=== PATIENT | female | born 2000 | race Hispanic/Latino ===

== ENCOUNTER → 2018-03-02 | Outpatient (CLI) | payer OTHER | END | disposition home or self-care (01) | LOC: RAH 13:49 | PROVIDERS: ATTEND Physician Assistant Medical | DX: N63.20 Unspecified lump in the left breast, unspecified quadrant (principal) | CPT/HCPCS: 76641 ==

== ENCOUNTER → 2018-07-02 | Outpatient (CLI) | payer BC, OTHER | END | disposition home or self-care (01) | LOC: RAH 08:43 | PROVIDERS: ATTEND Family Medicine | DX: R16.0 Hepatomegaly, not elsewhere classified (principal); R74.0 Nonspecific elevation of levels of transaminase and lactic acid dehydrogenase [LDH]; R79.89 Other specified abnormal findings of blood chemistry | CPT/HCPCS: 76705 ==

== ENCOUNTER → 2018-07-15 | Outpatient (CLI) | payer BC, OTHER ==
[~2018-07-15] MED LIST: IOHEXOL 350 MG/ML 100ML INFUS..BTL IV ONE
== END | disposition home or self-care (01) ==
LOC: OIH 10:21
PROVIDERS: ATTEND Family Medicine
DX: K76.89 Other specified diseases of liver (principal); N32.89 Other specified disorders of bladder
CPT/HCPCS: 74177; Q9967

== ENCOUNTER → 2019-02-24 | Outpatient (CLI) | payer OTHER | END | disposition home or self-care (01) | LOC: RAH 10:33 | PROVIDERS: ATTEND Family Medicine | DX: R76.11 Nonspecific reaction to tuberculin skin test without active tuberculosis (principal) | CPT/HCPCS: 71046 ==

== ENCOUNTER 2021-05-28 13:26 | Inpatient (IN) | payer OTHER ==
[~2021-05-28] VITALS: Ht 160 cm; Wt 92.1 kg
[2021-05-28] MEDS ORDERED: OXYTOCIN-LR 20 UNITS/1000 ML 1,000 ML IV SCH (13:30)
[2021-05-28 14:01] LABS: HEMATOCRIT 35.4 % (36-48); MEAN CORPUSCULAR HEMOGLOBIN 30.6 pg (27.0-33.0); MEAN CORPUSCULAR HGB CONC 34.5 g/dL (32.0-36.0); MEAN CORPUSCULAR VOLUME 88.7 fL (79-99); RED BLOOD CELL COUNT(AUTO) 3.99 MIL/uL (4.00-5.50); RED CELL DISTRIBUTION WIDTH 13.2 % (11.0-15.5); WHITE BLOOD COUNT (AUTO) 10.2 K/uL (4.8-10.8)
[2021-05-28 14:31] VITALS: BP 112/68
[2021-05-28] MEDS: LACTATED RINGERS 1000ML 1,000 ML IV PRN (14:31)
[2021-05-28 14:49] LABS: APPEARANCE,URINE Clear (CLEAR); BILIRUBIN,URINE Negative (NEGATIVE); COLOR,URINE Yellow (YELLOW); GLUCOSE, URINE (UA) Negative (NEGATIVE); KETONES,URINE Negative (NEGATIVE); LEUKOCYTE ESTERASE ,URINE Negative (NEGATIVE); NITRATE,URINE Negative (NEGATIVE); OCCULT BLOOD,URINE Negative (NEGATIVE); PH,URINE 5.5 (5.0-8.0); PROTEIN,URINE Negative (NEGATIVE)
[2021-05-28] MEDS ORDERED: DINOPROSTONE 10 MG VAGINAL SUPP VG SCH (15:00)
[2021-05-29 03:09] LABS: HEPATITIS Bs ANTIGEN SCREEN P Negative (Negative)
[2021-05-29] MEDS ORDERED: OXYTOCIN-LR 20 UNITS/1000 ML 1,000 ML IV SCH (04:00)
[2021-05-29] MEDS: LACTATED RINGERS 1000ML 1,000 ML IV PRN (08:14)
[2021-05-29] MEDS ORDERED: BUTORPHANOL TARTRATE 2 MG/ML ONE (13:04)
[2021-05-29] MEDS ORDERED: BUTORPHANOL TARTRATE 2 MG/ML IVP ONE (14:45)
[2021-05-29] MEDS ORDERED: NALOXONE HCL 0.4 MG/1 ML ML IV PRN (15:00)
[2021-05-29] MEDS ORDERED: EPHEDRINE SULFATE 50 MG/ML AMPULE IVP PRN ×2 (15:00→20:30)
[2021-05-29] MEDS ORDERED: ROPIVACAINE 0.2% 100ML VIAL 100 ML EP SCH (15:00)
[2021-05-29] MEDS ORDERED: LACTATED RINGERS 500 ML 500 ML IV PRN (15:00)
[2021-05-29] MEDS ORDERED: CEFAZOLIN SODIUM 1 GM VIAL IVP PRN (17:30)
[2021-05-29] MEDS ORDERED: METOCLOPRAMIDE 10 MG/2 ML VIAL IVP PRN (17:30)
[2021-05-29] MEDS ORDERED: CITRIC ACID/SODIUM CITRATE 30 ML UDCUP PO PRN (17:30)
[2021-05-29] MEDS ORDERED: LACTATED RINGERS 1000ML 1,000 ML IV SCH (17:30)
[2021-05-29] MEDS ORDERED: FENTANYL CITRATE PF 50 MCG/1 ML 2ML VIAL ONE ×2 (18:03→18:27)
[2021-05-29] MEDS ORDERED: CEFAZOLIN SODIUM 1 GM VIAL IVP ONE (18:11)
[2021-05-29] MEDS ORDERED: OXYTOCIN 10 UNIT/1ML 10ML VIAL ONE (18:14)
[2021-05-29] MEDS ORDERED: ONDANSETRON 4MG INJ ONE (18:15)
[2021-05-29] MEDS ORDERED: KETAMINE HCL 100 MG/ML 5ML VIAL IJ ONE (18:18)
[2021-05-29] MEDS ORDERED: MORPHINE PF 100MG/10ML AMP IV ONE (18:23)
[2021-05-29] MEDS ORDERED: DEXAMETHASONE SOD PHOSPHATE 10MG/ML 1ML VIAL ONE (18:45)
[2021-05-29] MEDS ORDERED: MEPERIDINE-PF 75 MG/ML SYG IM PRN (19:00)
[2021-05-29] MEDS ORDERED: OXYTOCIN-LR 20 UNITS/1000 ML 1,000 ML IV PRN (19:00)
[2021-05-29] MEDS ORDERED: 0.9%NACL 10ML VIAL IVP PRN (19:00)
[2021-05-29] MEDS ORDERED: PROMETHAZINE HCL 25 MG/ML 1ML AMPULE IM PRN (19:00)
[2021-05-29] MEDS ORDERED: DEXTROSE 5 %-0.45 % NACL 1,000 ML IV PRN (19:00)
[2021-05-29] MEDS ORDERED: PHENYLEPHRINE HCL 10 MG/ML 1ML VIAL IV ONE (19:36)
[2021-05-29] MEDS ORDERED: LORATADINE 10 MG TABLET PO PRN (20:30)
[2021-05-29] MEDS ORDERED: NALOXONE HCL 0.4 MG/1 ML ML IVP PRN ×2 (20:30)
[2021-05-29] MEDS ORDERED: DiphenhydrAMINE HCL 50 MG/ML VIAL IVP PRN (20:30)
[2021-05-29] MEDS ORDERED: RACEPINEPHRINE HCL 2.25% 0.5 ML NEB SOLN NEB PRN (20:30)
[2021-05-29] MEDS ORDERED: ONDANSETRON 4MG INJ IVP PRN (20:30)
[2021-05-29] MEDS ORDERED: FENTANYL CITRATE PF 50 MCG/1 ML 2ML VIAL IVP PRN (20:30)
[2021-05-29] MEDS ORDERED: MEPERIDINE-PF 25 MG/ML SYG IVP PRN (20:30)
[2021-05-29] MEDS ORDERED: IPRATROPIUM/ALBUTEROL SULFATE 3 ML SOLUTION IH PRN (20:30)
[2021-05-29 23:00] VITALS: BP 139/82
[2021-05-30] MEDS ORDERED: ACETAMINOPHEN WITH CODEINE 1 TAB TAB PO PRN ×2 (01:30→08:30)
[2021-05-30] MEDS ORDERED: DIPH,PERTUSS(ACELL),TET VAC/PF 0.5 ML VIAL IM PRN (03:00)
[2021-05-30 03:56] VITALS: BP 118/55
[2021-05-30 06:29] LABS: HEMATOCRIT 29.2 % (36-48); MEAN CORPUSCULAR HEMOGLOBIN 29.6 pg (27.0-33.0); MEAN CORPUSCULAR HGB CONC 32.9 g/dL (32.0-36.0); MEAN CORPUSCULAR VOLUME 90.1 fL (79-99); RED BLOOD CELL COUNT(AUTO) 3.24 MIL/uL (4.00-5.50); RED CELL DISTRIBUTION WIDTH 13.4 % (11.0-15.5); WHITE BLOOD COUNT (AUTO) 19.5 K/uL (4.8-10.8)
[2021-05-30 07:13] VITALS: BP 115/67
[2021-05-30] MEDS ORDERED: LANOLIN 30GM OINTMENT TP PRN (08:30)
[2021-05-30] MEDS ORDERED: HYDROCODONE/ACETAMINOPHEN 5/325 MG TAB PO PRN (08:30)
[2021-05-30] MEDS ORDERED: ACETAMINOPHEN 500 MG TABLET PO PRN (08:30)
[2021-05-30] MEDS ORDERED: BISACODYL 10 MG SUPP.RECT RC PRN (08:30)
[2021-05-30] MEDS: DOCUSATE SODIUM 100 MG CAP PO SCH ×2 (08:55→20:32)
[2021-05-30] MEDS: SIMETHICONE 80 MG TAB.CHEW PO PRN ×2 (08:55→20:32)
[2021-05-30] MEDS: IBUPROFEN 600 MG TABLET PO PRN ×2 (08:59→16:31)
[2021-05-30 12:08] VITALS: BP 109/65
[2021-05-30 16:06] VITALS: BP 91/48
[2021-05-30 19:25] VITALS: BP 106/59
[2021-05-30 23:23] VITALS: BP 116/64
[2021-05-31 04:24] VITALS: BP 121/70
[2021-05-31] MEDS: IBUPROFEN 600 MG TABLET PO PRN (07:29)
[2021-05-31 08:04] VITALS: BP 117/73
== END 2021-05-31 10:55 | disposition home or self-care (01) | DRG 788 ==
LOC: LDH 13:26 → WSH 05-29 21:40
PROVIDERS: ADMIT Obstetrics & Gynecology; ATTEND Obstetrics & Gynecology
PROC: 3E0T3BZ Introduction of Anesthetic Agent into Peripheral Nerves and Plexi, Percutaneous Approach (ICD-10-PCS; 2021-05-29)
PROC: 3E0T33Z Introduction of Anti-inflammatory into Peripheral Nerves and Plexi, Percutaneous Approach (ICD-10-PCS; 2021-05-29)
PROC: 10D00Z1 Extraction of Products of Conception, Low, Open Approach (ICD-10-PCS; principal; 2021-05-29 18:00)
PROC: 3E0234Z Introduction of Serum, Toxoid and Vaccine into Muscle, Percutaneous Approach (ICD-10-PCS; 2021-05-30)
DX: O62.1 Secondary uterine inertia (principal); Z3A.39 39 weeks gestation of pregnancy; Z37.0 Single live birth; O69.81X0 Labor and delivery complicated by cord around neck, without compression, not applicable or unspecified; O99.214 Obesity complicating childbirth; E66.01 Morbid (severe) obesity due to excess calories; Z23 Encounter for immunization
CPT/HCPCS: 36415; 59510; 81003; 85014; 85018; 85027; 86592; 86850; 86900; 86901; 87340; 90715; A4314; A4344; G0378; J0595; J0690; J1100; J2274; J2370; J2405; J2590; J3010; J3490; J7120